=== PATIENT | male | born 2000 ===

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

== ENCOUNTER → 2019-12-16 | Outpatient (CLI) | payer BC | END | disposition home or self-care (01) | LOC: LAB 19:31 → LAB SHORT 19:31 | DX: M79.672 Pain in left foot (principal); M79.676 Pain in unspecified toe(s) | CPT/HCPCS: 87070; 87077; 87147; 87186; 87205 ==